=== PATIENT | female | born 1950 | race Caucasian/White ===

== ENCOUNTER 2017-01-01 02:31 | Observation (INO) | payer MEDICARE, BC ==
[2017-01-01] MEDS ORDERED: ONDANSETRON HCL 4 MG/2 ML VIAL ONE (02:56)
[2017-01-01 03:00] LABS: BASOPHIL# 0.1 X 10^3uL (0.0-0.1); BASOPHILS 0.7 % (0.0-2.0); EOSINOPHILS 1.1 % (0.0-6.0); EOSINOPHILS# 0.1 X 10^3uL (0.0-0.4); HEMATOCRIT 45.2 % (36.0-48.0); HEMOGLOBIN 15.6 g/dL (12.0-16.0); LYMPHOCYTES 15.6 % (20.0-40.0); LYMPHOCYTES# 1.1 X 10^3uL (0.8-3.8); MEAN CELL VOLUME 86.4 fL (80.0-100.0); MEAN CORPUS. HGB CONCENTRATION 34.5 g/dL (32.0-36.0); MEAN CORPUSCULAR HEMOGLOBIN 29.8 pg (29.0-35.0); MEAN PLATELET VOLUME 8.5 fL (7.4-10.4); MONOCYTES 5.3 % (2.0-10.0); MONOCYTES# 0.4 X 10^3uL (0.2-1.0); NEUTROPHILS 77.3 % (54.0-75.0); NEUTROPHILS# 5.5 X 10^3uL (2.6-6.7); PLATELET COUNT 270 X 10^3uL (130-440); RED BLOOD COUNT 5.23 X 10^6uL (4.20-6.10); RED CELL DISTRIBUTION WIDTH 12.3 % (11.5-14.5); WHITE BLOOD COUNT 7.2 X 10^3uL (3.9-10.7)
[2017-01-01 03:06] LABS: BLOOD UREA NITROGEN 18 mg/dL (7-17); CALCIUM 9.3 mg/dL (8.4-10.2); CHLORIDE 106 mmol/L (98-107); CREATININE 0.8 mg/dL (0.5-1.0); EST GLOMERULAR FILTRATION RATE > 60 mL/min; GLUCOSE 138 mg/dL (70-100); POTASSIUM 3.9 mmol/L (3.5-5.1); SODIUM 139 mmol/L (137-145)
[2017-01-01] MEDS ORDERED: DICYCLOMINE HCL 10 MG CAPSULE PO ONE ×2 (03:48→04:35)
[2017-01-01] MEDS ORDERED: HOME MEDICATION LIST NEEDED 1 EA EACH MISC ONE (04:44)
[2017-01-01] MEDS ORDERED: ZOLPIDEM TARTRATE 5 MG TABLET PO PRN (04:44)
[2017-01-01] MEDS ORDERED: MORPHINE SULFATE 4 MG/ML SYR IV PRN (04:44)
[2017-01-01] MEDS ORDERED: MORPHINE SULFATE 4 MG/ML SYR ONE (04:54)
[2017-01-01] MEDS ORDERED: POTASSIUM CHLORIDE/NS 1,000 ML IV SCH ×2 (05:00→08:56)
--- NOTE | 2017-01-01 05:16 | ER NURSING DOCUMENTATION ---
Nurse's Notes [facility] Name:Stephanie Casanova Age:66 yrs Sex:Female :1950 Arrival Date:01/01/2017 Time:02:31 Bed3 Private MD:Sarah Byrd Diagnosis:Diarrhea [id number] Presentation: 01/01 02:38 Presenting complaint: Patient states: Pt has been having diarrhea for 10 days. Today rh she had 10 episodes of diarrhea and was seen in the clinic downstairs for a c-diff workout. Pt c/o feeling dehydrated and weak. Transition of care: Home. 02:38 Acuity: SARAH 3 rh 02:38 Method Of Arrival: Walk In Triage Assessment: 02:40 General: Appears in no apparent distress, Behavior is cooperative. Pain: Complains of rh pain in abdomen Quality of pain is described as crampy. EENT: Oral mucosa is dry. Neuro: Level of Consciousness is awake, alert, obeys commands, Oriented to person, place, time, event. Cardiovascular: Capillary refill < 3 seconds. Respiratory: Airway is patent Respiratory effort is even, unlabored. GI: Abdomen is non- distended Bowel sounds hyperactive in right lower quadrant and left lower quadrant Abdomen is tender to palpation Reports diarrhea, nausea. : No deficits noted. Derm: Skin is intact, is healthy with good turgor, Skin is pink, warm & dry. Historical: - Allergies: No known drug Allergies; - Home Meds: 1. levothyroxine oral 2. Lipitor Oral 3. Bupropion Oral 4. citalopram oral - PMHx: HYPOTHYROIDISM; HIGH CHOLESTEROL; - PSHx: None; - Tetanus: < 10 years. - Ebola Screening: : Patient negative for fever greater than or equal to 101.5 degrees Fahrenheit, and additional compatible Ebola Virus Disease symptoms. - Immunization history: Flu Vaccine < 1 year. - Social history: Smoking status: Patient states was never smoker of tobacco. Screenin:42 Infectious Disease Risk None. Abuse screen: Denies threats or abuse. Denies injuries rh from another. Nutritional screening: No deficits noted. Assessment: 02:41 See Triage Assessment done by same RN. 04:40 Reassessment: PT c/o abdominal cramping and a slight feeling of exhaustion from the rh diarrhea and events over the past 10 days. . Vital Signs: 02:41 BP 118 / 76; Pulse 96; Resp 18; Temp 97.6; Pulse Ox 95% on R/A; Weight 79.38 kg; Height rh 5 ft. 3 in. (160.02 cm); Pain 4/10; 04:00 BP 106 / 67; Pulse 75; Resp 15; Pulse Ox 92% on R/A; rh 04:56 Pulse 74; Resp 16; Pulse Ox 96% on 1 lpm NC; rh 02:41 Body Mass Index 31.00 (79.38 kg, 160.02 cm) rh ED Course: 02:31 Patient arrived in ED. em2 02:31 Sarah Byrd MD is Private Physician. em2 02:38 Lorene Dhaliwal is Primary Nurse. rh 02:39 Triage completed. rh 02:40 Inserted peripheral IV: 20 gauge in left antecubital area and blood collected. INSERTED rh BY RAYSA [employer] TECH. 02:41 Notified ED Physician of patient's arrival and chief complaint. Dr. Badillo notified. rh 02:42 Valuables Remains with patient Patient has correct armband on for positive rh identification. Placed in gown. Bed in low position. Call light in reach. Side rails up X 1. 02:45 Julian Badillo MD is Attending Physician. jm 02:51 Sarah Byrd MD is Referral Physician. jm 04:45 Inserted peripheral IV: 22 gauge in left hand. rh 04:48 Sarah Byrd MD is Admitting Physician. jm 04:50 Oxygen Oxygen administration via nasal cannula @ 1L/min. rh 04:54 Discontinued IV bleeding controlled, pressure dressing applied, No redness/swelling at rh site. Administered Medications: 02:43 Drug: NS 0.9% 1000 ml; Route: IV; Rate: bolus; Site: left antecubital; rh 03:38 Follow up: IV Status: Completed infusion; IV Intake: 1000ml rh 02:45 Drug: Zofran 4 mg; Route: IVP; Infused Over: 2 mins; Site: left antecubital; rh 02:57 Follow up: Response: Nausea is decreased rh 03:38 Drug: Bentyl 10 mg; Route: PO; rh 04:41 Follow up: Response: No adverse reaction rh 03:38 Drug: NS 0.9% 1000 ml; Route: IV; Rate: bolus; Site: left antecubital; 04:15 Follow up: IV Status: Completed infusion; IV Intake: 1000ml rh 04:48 Drug: morphine 4 mg; Route: IVP; Site: left hand; rh 04:53 Follow up: Response: Pain is decreased rh Intake: 03:38 IV: 1000ml; Total: 1000ml. 04:15 IV: 1000ml; Total: 2000ml. Outcome: 02:52 Discharge ordered by . 04:49 Decision to Admit by Provider. 05:15 Admitted to Med/surg accompanied by nurse, via stretcher, with oxygen, with chart. 05:15 Condition: improved 05:15 Discharge Assessment: Patient awake, alert and oriented x 3. No cognitive and/or functional deficits noted. Patient verbalized understanding of disposition instructions. 05:15 Instructed on need to admit 05:15 Patient left the ED. Signatures: Julian Badillo MD MD jm Meinking-reg, Raysa-Lorene Han
--- NOTE | 2017-01-01 05:16 | ER PHYSICIAN DOCUMENTATION ---
Physician Documentation [facility] Name:Stephanie Casanova Age:66 yrs Sex:Female :1950 Arrival Date:01/01/2017 Time:02:31 Bed3 Private MD:Sarah Byrd ED, John Disposition: 01/01/17 04:49 Admit ordered for Sarah Byrd. Preliminary diagnosis is Diarrhea Infectious - C-diff. - Bed requested for Medical/Surgical. - Condition is Fair. - Problem is new. - Symptoms have improved. 23 HR OBS Yes HPI: 01/01 03:00 This 66 yrs old Female presents to ER via Walk In with complaints of Diarrhea.jm 03:00 The patient presents to the emergency department with nausea, with diarrhea, with jm associated abdominal pain, of the abdomen diffusely, described as crampy. Onset: The symptom(s)/episode began/occurred yesterday, and became worse today. Possible causes: known C-diff. The symptoms are aggravated by nothing. Associated signs and symptoms: Pertinent positives: abdominal pain. Severity of symptoms: in the emergency department the symptoms are worse. The patient has not experienced similar symptoms in the past. The patient has been recently seen by a physician: the patient's primary care provider, Dr. Byrd, who ordered a C-diff study and ordered pt to get IVF yesterday afternoon, but pt refused. Now she feels drained with malaise and abd cramps. . Historical: - Allergies: No known drug Allergies; - Home Meds: 1. levothyroxine oral 2. Lipitor Oral 3. Bupropion Oral 4. citalopram oral - PMHx: HYPOTHYROIDISM; HIGH CHOLESTEROL; - PSHx: None; - Tetanus: < 10 years. - Ebola Screening: : Patient negative for fever greater than or equal to 101.5 degrees Fahrenheit, and additional compatible Ebola Virus Disease symptoms. - Immunization history: Flu Vaccine < 1 year. - Social history: Smoking status: Patient states was never smoker of tobacco. ROS: 03:00 Constitutional: Positive for fatigue, malaise, Negative for chills, fever. jm 03:00 Abdomen/GI: Positive for nausea, diarrhea, abdominal cramps. 03:00 Skin: Negative for pallor, rash. 03:00 Neuro: Positive for dizziness, weakness. 03:00 All other systems are negative. Exam: 03:00 Constitutional: The patient appears alert, awake, comfortable. 03:00 Eyes: Periorbital structures: appear normal, Extraocular movements: intact throughout. 03:00 ENT: Mouth: Oral mucosa: dry, Voice: is normal. 03:00 Cardiovascular: Rate: tachycardic, Rhythm: regular. 03:00 Respiratory: Respirations: normal, Breath sounds: are normal. 03:00 Abdomen/GI: Bowel sounds: normal, Palpation: abdomen is soft and non-tender. 03:00 Musculoskeletal/extremity: Circulation is intact in all extremities. Weight bearing: able to fully bear weight. 03:00 Skin: Appearance: Color: pink, Turgor: is good. 03:00 Neuro: Mentation: is normal, Memory: is normal. 03:00 Psych: Behavior/mood is pleasant, cooperative, Affect is calm. Vital Signs: 02:41 BP 118 / 76; Pulse 96; Resp 18; Temp 97.6; Pulse Ox 95% on R/A; Weight 79.38 kg; Height rh 5 ft. 3 in. (160.02 cm); Pain 4/10; 04:00 BP 106 / 67; Pulse 75; Resp 15; Pulse Ox 92% on R/A; rh 04:56 Pulse 74; Resp 16; Pulse Ox 96% on 1 lpm NC; rh 02:41 Body Mass Index 31.00 (79.38 kg, 160.02 cm) rh MDM: 02:45 Patient medically screened. 03:00 Differential diagnosis: diverticulitis, viral gastroenteritis, known C-diff. Data divina reviewed: vital signs, nurses notes, old medical records, lab test result(s), and as a result, I will admit patient. Counseling: I had a detailed discussion with the patient and/or guardian regarding: the historical points, exam findings, and any diagnostic results supporting the discharge/admit diagnosis, lab results, the need for further work-up and treatment in the hospital. Medication response: The patient's symptoms are unchanged despite medication administration. Physician consultation: Sarah Byrd MD regarding admission, and will see patient shortly, later today. Admission orders: after a detailed discussion of the patient's condition and case, the admit orders are written by me. ED course: Pt no better after Bentyl, morphine, zofran, and 2LNS. She is still very crampy. Dr. Byrd has accepted pt for admission for continued sx control. . 01/01 03:01 Order name: CBC AUTO DIF, MDIF/RMOR IF IND; Complete Time: 04:46 EDMS 01/01 03:07 Order name: BASIC METABOLIC PANEL; Complete Time: 04:46 EDMS 01/01 02:43 Order name: Iv Saline Lock; Complete Time: 02:43 rh Dispensed Medications: 02:43 Drug: NS 0.9% 1000 ml; Route: IV; Rate: bolus; Site: left antecubital; rh 03:38 Follow up: IV Status: Completed infusion; IV Intake: 1000ml rh 02:45 Drug: Zofran 4 mg; Route: IVP; Infused Over: 2 mins; Site: left antecubital; rh 02:57 Follow up: Response: Nausea is decreased rh 03:38 Drug: Bentyl 10 mg; Route: PO; rh 04:41 Follow up: Response: No adverse reaction rh 03:38 Drug: NS 0.9% 1000 ml; Route: IV; Rate: bolus; Site: left antecubital; rh 04:15 Follow up: IV Status: Completed infusion; IV Intake: 1000ml rh 04:48 Drug: morphine 4 mg; Route: IVP; Site: left hand; rh 04:53 Follow up: Response: Pain is decreased rh Signatures: Julian Badillo MD MD jm Hofsess, Rachel rh
[2017-01-01] MEDS ORDERED: metroNIDAZOLE 500 MG TABLET PO SCH (09:00)
[2017-01-01 11:20] VITALS: BP 109/69; PULSE 79; RESP 18; TEMP 98.2; O2SAT 93
--- NOTE | 2017-01-01 13:14 | HISTORY & PHYSICAL ---
DATE OF ADMISSION: 01/01/17 HISTORY OF PRESENT ILLNESS: This 66-year-old woman is known to have C. diff. I saw her in the clinic yesterday at which time she was on the verge of dehydration. She has already started her metronidazole at home but last night had such severe abdominal cramping that she presented to the emergency room for relief. She did get good relief with some IV morphine and her hydration status was corrected with IV fluids. PAST MEDICAL HISTORY 1. Hyperlipidemia. 2. Hypothyroidism. 3. Mild depression and anxiety. PAST SURGICAL HISTORY: None. SOCIAL HISTORY: She has never been a smoker. She does not drink alcohol regularly. She lives her in town with her and is involved in community activities. They arrived about 1-1/2 years ago. FAMILY HISTORY: Noncontributory. ALLERGIES: No known drug allergies. MEDICATIONS Atorvastatin 20 mg p.o. at h.s. Wellbutrin SR 100 mg p.o. b.i.d. Vitamin D3 1000 IU p.o. daily. Celexa 40 mg p.o. daily. Synthroid 88 mcg p.o. daily. Metronidazole 250 mg p.o. t.i.d. times 2 weeks. LABORATORY DATA: From the emergency room reveals a normal CBC. Chemistry significant for glucose of 138. PHYSICAL EXAMINATION VITAL SIGNS: In the emergency room she was mildly tachycardic on arrival, pulse down to the 70s after 2 liters of IV fluid. At present she is afebrile with a blood pressure of 117/76, a pulse of 84, respirations normal, 95% O2 saturation on 1 liter of oxygen. GENERAL: She is her usual smiley self, no abdominal pain at this time. HEENT: Basically unremarkable without adenopathy. CARDIAC: Regular rate and rhythm with no murmur noted. CHEST: Completely clear to auscultation. ABDOMEN: Slightly protuberant, slightly increased frequency of bowel tones but normal frequency and there is no abdominal pain with palpitation at this time. EXTREMITIES: Without edema. Homans sign is negative bilaterally. ASSESSMENT AND PLAN 1. Clostridium difficile know at time of admission. Contact precautions are in place. The patient will continue her p.o. Flagyl. We will wean off of the IV fluids and see if she can sustain herself well with a clear liquid diet. She is welcome to go home at any time if she cramping and diarrhea are controlled and her p.o. intake is adequate to succeed at home. She knows it will be important to get on a probiotic as she finishes the antibiotics and watch for signs for recurrence of C. diff. We know that all this happens because clindamycin given for dental purposes. 2. Chronic medical issues. Her other medical issues are well controlled and not contributing at this time. Routine medicines will be continued. KAROL
== END 2017-01-01 12:00 | disposition home or self-care (01) ==
LOC: ER 02:31 → IN 05:14
PROVIDERS: ADMIT Family Medicine; ATTEND Family Medicine
DX: E86.0 Dehydration (principal); A04.7 Enterocolitis due to Clostridium difficile; E03.9 Hypothyroidism, unspecified; E78.5 Hyperlipidemia, unspecified; F41.8 Other specified anxiety disorders; Z79.899 Other long term (current) drug therapy
CPT/HCPCS: 80048; 85025; 96361; 96374; 96375; 99285; G0378; J2270; J2405; J3480